=== PATIENT | male | born 1935 | race Caucasian/White ===

== ENCOUNTER 2018-08-10 08:30 | Inpatient (IN) | payer OTHER ==
[~2018-08-10] VITALS: Ht 177.8 cm; Wt 67.1 kg
[2018-08-10 08:30] VITALS: BP_SYST 133
[~2018-08-10 08:30] MED LIST: ALBU2TAB4 PO; ATRMDI INH; GLUC100017 PO; NAPR250T4 PO; OMEP20CA10 PO; PRO20 PO; SEREVENT IH
[2018-08-10 09:24] LABS: BASOPHILS % (AUTO) 0.2 % (0.0-2.0); HEMATOCRIT 38.8 % (36-54); HEMOGLOBIN 13.3 g/dL (14.0-18.0); LYMPHOCYTES # (AUTO) 0.1 K/uL (1.0-5.5); LYMPHOCYTES % (AUTO) 1.1 % (20.5-51.5); MEAN CORPUSCULAR HEMOGLOBIN 32 pg (27-31); MEAN CORPUSCULAR HGB CONC 34 % (32-36); MEAN CORPUSCULAR VOLUME 93 fL (79.0-98.0); MONOCYTES # (AUTO) 0.8 K/uL (0.0-1.0); MONOCYTES % (AUTO) 7.5 % (1.7-9.3); NEUTROPHILS # (AUTO) 10.1 K/uL (1.8-7.7); NEUTROPHILS % (AUTO) 91.2 % (40.0-70.0); PLATELET COUNT (AUTO) 141 K/uL (130-430); RED BLOOD CELL COUNT(AUTO) 4.16 MIL/uL (4.2-6.2); RED CELL DISTRIBUTION WIDTH 13.6 % (9.0-15.0); WHITE BLOOD COUNT (AUTO) 11.1 K/uL (4.8-10.8)
[2018-08-10 09:41] LABS: ANION GAP 12 (5-15); CALCIUM 9.5 mg/dL (8.4-11.0); CHLORIDE 101 mmol/L (98-107); CREATININE 0.69 mg/dL (0.55-1.30); GLUCOSE 154 mg/dL (70-99); POTASSIUM 3.5 mmol/L (3.5-5.1); SODIUM SERUM 135 mmol/L (136-145); UREA NITROGEN, BLOOD 27 mg/dL (8-21)
[2018-08-10 09:57] LABS: ALANINE AMINOTRANSFERASE 124 U/L (12-78); ALBUMIN 3.6 g/dL (3.4-4.8); ASPARTATE AMINOTRANSFERASE 119 U/L (10-37); FREE T4 (FREE THYROXINE) 0.6 ng/dL (0.6-1.6)
[2018-08-10 09:59] LABS: ALCOHOL, BLOOD < 3 mg/dL (<10)
[2018-08-10] MEDS ORDERED: NS 500 ML IV ONE ×2 (10:00→13:00)
[2018-08-10 10:04] LABS: INR 1.1 (0.80-1.20); PROTHROMBIN TIME 11.5 SECS (9.5-12.5)
[2018-08-10 10:10] LABS: BILIRUBIN,URINE NEGATIVE (NEGATIVE); BLOOD, URINE 3+ (NEGATIVE); CLARITY/URINE CLOUDY (CLEAR); COLOR,URINE YELLOW (YELLOW); GLUCOSE,URINE NEGATIVE (NEGATIVE); KETONES,URINE 1+ (NEGATIVE); LEUKOCYTE ESTERASE ,URINE 3+ (NEGATIVE); NITRITE, URINE NEGATIVE (NEGATIVE); PROTEIN URINE 2+ (NEGATIVE); UROBILINOGEN,URINE 0.2 (0.2-1.0)
[2018-08-10 10:16] LABS: BARBITURATE, URINE NEGATIVE (NEG <=200); BENZODIAZEPINE, URINE NEGATIVE (NEG <=150); CANNABINOID, URINE NEGATIVE (NEG <=50); COCAINE, URINE NEGATIVE (NEG <=150); METHAMPHETAMINES SCREEN,URINE NEGATIVE (NEG <=500); OPIATE, URINE NEGATIVE (NEG <=100); PHENCYCLIDINE SCREEN,URINE NEGATIVE (NEG <=25); UR TRICYCLIC ANTIDEPRESSANTS NEGATIVE (NEG <=300); URINE AMPHETAMINE NEGATIVE (NEG <=500); URINE METHADONE NEGATIVE (NEG <=200); URINE OXYCODONE SCREEN NEGATIVE (NEG <=100); URINE PROPOXYPHENE SCREEN NEGATIVE (NEG <=300)
[2018-08-10] MEDS ORDERED: ACETAMINOPHEN 325 MG TABLET PO ONE (10:45)
[2018-08-10 11:10] LABS: BACTERIA,URINE MANY /HPF (None Seen); RBC,URINE 20-50 /HPF (0-3); WBC,URINE >100 /HPF (0-3)
[2018-08-10] MEDS ORDERED: ACETAMINOPHEN 650 MG/20.3 ML UDC PO PRN (12:30)
[2018-08-10] MEDS ORDERED: ONDANSETRON HCL 4 MG/2 ML VIAL IVP PRN (12:30)
[2018-08-10 14:19] VITALS: BP_SYST 110
[2018-08-10] MEDS: cefTRIAXone 1 GM IVPB PREMIX 50 ML IV SCH (15:48)
[2018-08-10] MEDS: NACL 0.9% 1,000 ML IV SCH ×2 (15:49→23:21)
[2018-08-10 16:01] VITALS: BP_SYST 111
[2018-08-10] MEDS ORDERED: THIA50TA10 PO (16:48)
[2018-08-10] MEDS ORDERED: MULT-1089 PO (16:48)
[2018-08-10] MEDS ORDERED: ALBU8.5H8 INH (16:53)
[2018-08-10] MEDS ORDERED: IPRATROPIUM BROM 0.5 MG/2.5 ML VIAL.NEB (ATROVENT) INH PRN (20:00)
[2018-08-10] MEDS ORDERED: ALBUTEROL SULFATE 0.083% 2.5 MG/3 ML VIAL.NEB INH PRN (20:00)
[2018-08-10 20:26] VITALS: BP_SYST 111
[2018-08-10 20:30] VITALS: BP_SYST 100
[2018-08-11 00:19] VITALS: BP_SYST 121
[2018-08-11 08:00] VITALS: BP_SYST 101
[2018-08-11 08:24] LABS: ANION GAP 10 (5-15); CALCIUM 8.5 mg/dL (8.4-11.0); CHLORIDE 107 mmol/L (98-107); CREATININE 0.84 mg/dL (0.55-1.30); GLUCOSE 139 mg/dL (70-99); POTASSIUM 3.4 mmol/L (3.5-5.1); SODIUM SERUM 140 mmol/L (136-145); UREA NITROGEN, BLOOD 33 mg/dL (8-21)
[2018-08-11 08:33] LABS: ALANINE AMINOTRANSFERASE 107 U/L (12-78); ALBUMIN 2.6 g/dL (3.4-4.8); ASPARTATE AMINOTRANSFERASE 93 U/L (10-37)
[2018-08-11] MEDS: cefTRIAXone 1 GM IVPB PREMIX 50 ML IV SCH (09:00)
[2018-08-11] MEDS: NACL 0.9% 1,000 ML IV SCH (09:00)
[2018-08-11] MEDS: FLUoxetine HCL 20 MG CAPSULE (PROzac) PO SCH (10:42)
[2018-08-11] MEDS: NAPROXEN 250 MG TABLET PO SCH (10:43)
[2018-08-11] MEDS: MULTIVITAMINS TAB 1 TABLET PO SCH (10:43)
[2018-08-11] MEDS ORDERED: POTASSIUM CHLORIDE 10 MEQ TAB.PRT.SR PO ONE (11:15)
[2018-08-11] MEDS ORDERED: ALBUTEROL SULFATE 0.083% 2.5 MG/3 ML VIAL.NEB INH PRN (11:30)
[2018-08-11 12:53] VITALS: BP_SYST 114
[2018-08-11 14:15] LABS: BILIRUBIN,URINE NEGATIVE (NEGATIVE); BLOOD, URINE 2+ (NEGATIVE); CLARITY/URINE CLOUDY (CLEAR); COLOR,URINE YELLOW (YELLOW); GLUCOSE,URINE NEGATIVE (NEGATIVE); KETONES,URINE NEGATIVE (NEGATIVE); LEUKOCYTE ESTERASE ,URINE 3+ (NEGATIVE); NITRITE, URINE NEGATIVE (NEGATIVE); PROTEIN URINE 2+ (NEGATIVE)
[2018-08-11 14:27] LABS: BACTERIA,URINE FEW /HPF (None Seen); MUCUS,URINE None Seen /LPF (None Seen); RBC,URINE 0-3 /HPF (0-3); WBC,URINE >100 /HPF (0-3)
[2018-08-11] MEDS: NORMAL SALINE 5 ML DISP.SYRIN IVF SCH ×2 (14:32→22:57)
[2018-08-11 16:32] VITALS: BP_SYST 101
[2018-08-11 20:15] VITALS: BP_SYST 106
[2018-08-12 00:11] VITALS: BP_SYST 123
[2018-08-12] MEDS: NORMAL SALINE 5 ML DISP.SYRIN IVF SCH ×3 (06:10→21:14)
[2018-08-12 07:34] LABS: ANION GAP 9 (5-15); CALCIUM 8.4 mg/dL (8.4-11.0); CHLORIDE 105 mmol/L (98-107); CREATININE 0.56 mg/dL (0.55-1.30); GLUCOSE 110 mg/dL (70-99); POTASSIUM 3.5 mmol/L (3.5-5.1); SODIUM SERUM 139 mmol/L (136-145); UREA NITROGEN, BLOOD 22 mg/dL (8-21)
[2018-08-12] MEDS ORDERED: ALBUTEROL SULFATE 0.083% 2.5 MG/3 ML VIAL.NEB INH PRN (07:36)
[2018-08-12 07:39] LABS: ALANINE AMINOTRANSFERASE 97 U/L (12-78); ALBUMIN 2.6 g/dL (3.4-4.8); ASPARTATE AMINOTRANSFERASE 76 U/L (10-37); TOTAL BILIRUBIN 0.7 mg/dL (0.0-1.0)
[2018-08-12 08:00] VITALS: BP_SYST 100
[2018-08-12] MEDS: cefTRIAXone 1 GM IVPB PREMIX 50 ML IV SCH (09:40)
[2018-08-12] MEDS: MULTIVITAMINS TAB 1 TABLET PO SCH (09:41)
[2018-08-12] MEDS: FLUoxetine HCL 20 MG CAPSULE (PROzac) PO SCH (09:41)
[2018-08-12] MEDS: NAPROXEN 250 MG TABLET PO SCH (09:41)
[2018-08-12 12:51] VITALS: BP_SYST 117
[2018-08-12] MEDS ORDERED: ALBUTEROL SULFATE 0.083% 2.5 MG/3 ML VIAL.NEB INH SCH (13:00)
[2018-08-12 16:50] VITALS: BP_SYST 121
[2018-08-12 19:00] VITALS: BP_SYST 108
[2018-08-12 20:00] VITALS: BP_SYST 108
[2018-08-12] MEDS ORDERED: LORazepam 2 MG/ML VIAL IVP SCH (22:00)
[2018-08-13 00:50] VITALS: BP_SYST 113
[2018-08-13] MEDS: NORMAL SALINE 5 ML DISP.SYRIN IVF SCH ×3 (05:35→20:43)
[2018-08-13 06:34] LABS: BASOPHILS % (AUTO) 0.2 % (0.0-2.0); EOSINOPHILS % (AUTO) 0.1 % (0.0-4.0); HEMATOCRIT 36.3 % (36-54); HEMOGLOBIN 12.5 g/dL (14.0-18.0); LYMPHOCYTES # (AUTO) 0.5 K/uL (1.0-5.5); LYMPHOCYTES % (AUTO) 8.6 % (20.5-51.5); MEAN CORPUSCULAR HEMOGLOBIN 32 pg (27-31); MEAN CORPUSCULAR HGB CONC 34 % (32-36); MEAN CORPUSCULAR VOLUME 93 fL (79.0-98.0); MONOCYTES # (AUTO) 0.9 K/uL (0.0-1.0); MONOCYTES % (AUTO) 15.2 % (1.7-9.3); NEUTROPHILS # (AUTO) 4.6 K/uL (1.8-7.7); NEUTROPHILS % (AUTO) 75.9 % (40.0-70.0); PLATELET COUNT (AUTO) 137 K/uL (130-430); RED BLOOD CELL COUNT(AUTO) 3.91 MIL/uL (4.2-6.2); RED CELL DISTRIBUTION WIDTH 13.3 % (9.0-15.0)
[2018-08-13 07:16] LABS: ANION GAP 9 (5-15); CALCIUM 8.3 mg/dL (8.4-11.0); CHLORIDE 106 mmol/L (98-107); CREATININE 0.56 mg/dL (0.55-1.30); GLUCOSE 90 mg/dL (70-99); SODIUM SERUM 141 mmol/L (136-145); UREA NITROGEN, BLOOD 18 mg/dL (8-21)
[2018-08-13 07:34] LABS: ALANINE AMINOTRANSFERASE 73 U/L (12-78); ALBUMIN 2.4 g/dL (3.4-4.8); ASPARTATE AMINOTRANSFERASE 49 U/L (10-37); TOTAL BILIRUBIN 0.5 mg/dL (0.0-1.0)
[2018-08-13 07:45] VITALS: BP_SYST 117
[2018-08-13] MEDS: cefTRIAXone 1 GM IVPB PREMIX 50 ML IV SCH (10:11)
[2018-08-13] MEDS: FLUoxetine HCL 20 MG CAPSULE (PROzac) PO SCH (10:12)
[2018-08-13] MEDS: NAPROXEN 250 MG TABLET PO SCH (10:12)
[2018-08-13] MEDS: MULTIVITAMINS TAB 1 TABLET PO SCH (10:12)
[2018-08-13] MEDS ORDERED: GENTAMICIN SULFATE 300 MG in NS 100 ML IV ONE (10:15)
[2018-08-13] MEDS ORDERED: POTASSIUM CHLORIDE 20 MEQ TAB.PRT.SR PO ONE (10:15)
[2018-08-13] MEDS ORDERED: THIAMINE HCL 100 MG TABLET PO ONE (10:30)
[2018-08-13] MEDS ORDERED: MINERAL OIL 30 ML UDC PO ONE (10:45)
[2018-08-13] MEDS ORDERED: POLYETHYLENE GLYCOL 3350, 17 GM/ POWD.PACK PO ONE (10:45)
[2018-08-13 16:39] VITALS: BP_SYST 117
[2018-08-13 18:05] VITALS: BP_SYST 127
[2018-08-13 20:00] VITALS: BP_SYST 121
[2018-08-13] MEDS: MINERAL OIL 30 ML UDC PO SCH (20:43)
[2018-08-13 23:23] VITALS: BP_SYST 114
[2018-08-14] MEDS ORDERED: TAMSULOSIN HCL 0.4 MG CAP PO ONE (02:00)
[2018-08-14] MEDS: NORMAL SALINE 5 ML DISP.SYRIN IVF SCH ×2 (05:11→13:33)
[2018-08-14 07:01] LABS: BASOPHILS % (AUTO) 0.3 % (0.0-2.0); EOSINOPHILS % (AUTO) 0.2 % (0.0-4.0); HEMATOCRIT 38.1 % (36-54); HEMOGLOBIN 13.2 g/dL (14.0-18.0); LYMPHOCYTES # (AUTO) 0.6 K/uL (1.0-5.5); LYMPHOCYTES % (AUTO) 10.2 % (20.5-51.5); MEAN CORPUSCULAR HEMOGLOBIN 32 pg (27-31); MEAN CORPUSCULAR HGB CONC 35 % (32-36); MEAN CORPUSCULAR VOLUME 93 fL (79.0-98.0); MONOCYTES # (AUTO) 0.9 K/uL (0.0-1.0); MONOCYTES % (AUTO) 14.6 % (1.7-9.3); NEUTROPHILS # (AUTO) 4.7 K/uL (1.8-7.7); NEUTROPHILS % (AUTO) 74.7 % (40.0-70.0); PLATELET COUNT (AUTO) 159 K/uL (130-430); RED BLOOD CELL COUNT(AUTO) 4.09 MIL/uL (4.2-6.2); RED CELL DISTRIBUTION WIDTH 13.5 % (9.0-15.0); WHITE BLOOD COUNT (AUTO) 6.3 K/uL (4.8-10.8)
[2018-08-14 07:04] LABS: ANION GAP 9 (5-15); CALCIUM 8.7 mg/dL (8.4-11.0); CHLORIDE 105 mmol/L (98-107); GLUCOSE 97 mg/dL (70-99); POTASSIUM 3.6 mmol/L (3.5-5.1); SODIUM SERUM 140 mmol/L (136-145); UREA NITROGEN, BLOOD 18 mg/dL (8-21)
[2018-08-14 07:17] LABS: ALANINE AMINOTRANSFERASE 66 U/L (12-78); ALBUMIN 2.5 g/dL (3.4-4.8); ASPARTATE AMINOTRANSFERASE 35 U/L (10-37); TOTAL BILIRUBIN 0.6 mg/dL (0.0-1.0)
[2018-08-14] MEDS ORDERED: THIAMINE HCL 100 MG TABLET PO SCH (09:00)
[2018-08-14] MEDS ORDERED: POLYETHYLENE GLYCOL 3350, 17 GM/ POWD.PACK PO SCH (09:00)
[2018-08-14] MEDS: cefTRIAXone 1 GM IVPB PREMIX 50 ML IV SCH (09:02)
[2018-08-14] MEDS: MINERAL OIL 30 ML UDC PO SCH (09:03)
[2018-08-14] MEDS: FLUoxetine HCL 20 MG CAPSULE (PROzac) PO SCH (09:04)
[2018-08-14] MEDS: MULTIVITAMINS TAB 1 TABLET PO SCH (09:04)
[2018-08-14] MEDS: NAPROXEN 250 MG TABLET PO SCH (09:04)
[2018-08-14 09:34] VITALS: BP_SYST 106
[2018-08-14] MEDS ORDERED: GENTAMICIN SULFATE 300 MG in NS 100 ML IV ONE (10:15)
[2018-08-14 11:11] LABS: % FREE PSA 6.5 %; FREE PSA 0.28 ng/mL; PROSTATE SPECIFIC AG TOTAL 4.3 ng/mL (0.0-4.0)
[2018-08-14 12:16] VITALS: BP_SYST 113
[2018-08-14 15:36] VITALS: BP_SYST 114
[2018-08-14 17:06] VITALS: BP_SYST 114
== END 2018-08-14 19:20 | DRG 872 ==
LOC: SED 08:30 → STU 12:20 → SMU 08-13 10:21
PROVIDERS: ADMIT Internal Medicine; ATTEND Internal Medicine
DX: A41.51 Sepsis due to Escherichia coli [E. coli] (principal); N13.6 Pyonephrosis; E86.0 Dehydration; G62.1 Alcoholic polyneuropathy; H91.90 Unspecified hearing loss, unspecified ear; F10.20 Alcohol dependence, uncomplicated; Y90.9 Presence of alcohol in blood, level not specified; R33.9 Retention of urine, unspecified; J45.909 Unspecified asthma, uncomplicated; K21.9 Gastro-esophageal reflux disease without esophagitis; R63.0 Anorexia; M19.90 Unspecified osteoarthritis, unspecified site; F32.9 Major depressive disorder, single episode, unspecified; Z90.49 Acquired absence of other specified parts of digestive tract; Z79.899 Other long term (current) drug therapy; Z88.0 Allergy status to penicillin; Z88.2 Allergy status to sulfonamides; Z68.21 Body mass index [BMI] 21.0-21.9, adult
CPT/HCPCS: 36415; 71045; 74018; 76700-TC; 80053; 80307; 81000-TC; 82140-TC; 83605; 83880; 84153; 84439; 84484; 85025; 85610-TC; 87040-TC; 87086; 87186-TC; 93005; 96361; 96365; 97110-GP; 97116-GP; 97530-GP; 99285; A6209; G0378; G0482; J0696; J1580; J1956; J2060; J2405; J7030

== ENCOUNTER 2018-08-15 07:06 | Emergency (ER) | payer OTHER ==
[~2018-08-15] VITALS: Ht 177.8 cm; Wt 90.7 kg
[2018-08-15 07:06] VITALS: BP_SYST 122
[~2018-08-15 07:06] MED LIST changes: -ALBU2TAB4 PO; +ALBU8.5H8 INH; +MULT-1089 PO; -NAPR250T4 PO; -OMEP20CA10 PO; +THIA50TA10 PO
--- NOTE | 2018-08-15 07:06 | NUR ---
BROUGHT IN BY [facility] AND PLACED IN BED #7, TRIAGED. REPORT GIVEN TO GRANT
--- NOTE | 2018-08-15 07:15 | NUR ---
PATIENT CAME IN BECAUSE HE WAS FOUND ON HIS KNEES PULLING ON CATHETER PER EMT. PATIENT DENIES FALL OR HITTING HEAD. PATIENT ALERT TO NAME, , AND PLACE. PATIENT NOT COMPLAINING OF PAIN. PATIENT NOT COMPLAINING OF SOB, NAUSEA, OR VOMITING. PATIENT HAS DURAN HANGING TO GRAVITY.
--- NOTE | 2018-08-15 08:05 | NUR ---
ER Dr. GOMEZ at bedside examining patient.
--- NOTE | 2018-08-15 08:23 | NUR ---
PATIENT GETTING X RAY IN BED.
--- NOTE | 2018-08-15 09:55 | NUR ---
CALLED AND GAVE REPORT TO JOSAFAT AT [facility]. ETA 30 TO 45 MIN.
--- NOTE | 2018-08-15 10:00 | NUR ---
Patient given written and verbal discharge instructions and verbalizes understanding. ER MD discussed with patient the results and treatment provided. Patient in stable condition. ID arm band removed. NO Rx given. Patient educated on pain management and to follow up with PMD. Pain Scale 0/10. Opportunity for questions provided and answered. Medication side effect fact sheet provided.
--- NOTE | 2018-08-15 10:05 | NUR ---
DURAN EMPTIED 450 ML. PUT NEW DURAN BATH TESTER PATIENT'S LEG BECAUSE OTHER WAS BROKEN.
[2018-08-15 10:45] VITALS: BP_SYST 115
--- NOTE | 2018-08-15 10:45 | NUR ---
Patient given written and verbal discharge instructions and verbalizes understanding. ER MD discussed with patient the results and treatment provided. Patient in stable condition. ID arm band removed. IV catheter on left arm that came with patient is still intack. Mustafa intact. No Rx given. Patient educated on pain management and to follow up with PMD. Pain Scale 0/10. Opportunity for questions provided and answered. Medication side effect fact sheet provided. Addendum: 08/15/18 at 1226 by MAURY Patient left to Justo Davies by [facility].
== END 2018-08-15 10:45 | disposition home or self-care (01) ==
LOC: SED 07:06
DX: Z46.6 Encounter for fitting and adjustment of urinary device (principal)
CPT/HCPCS: 74018; 99283

== ENCOUNTER 2018-09-20 15:49 | Emergency (ER) | payer OTHER ==
[~2018-09-20] VITALS: Ht 175.3 cm; Wt 59.4 kg
[2018-09-20 15:50] VITALS: BP_SYST 114
--- NOTE | 2018-09-20 15:50 | NUR ---
PT TRIAGED AND STATES THAT PT HAD DURAN CATHETER REMOVED AT 1500 AND THAT PT IS UNABLE TO URINATE. PT STATES THAT HOME HEALTH NURSE WAS UNABLE TO PLACE DURAN, STATES THAT HOME HEALTH NURSE SAID SHE WOULD BE BACK IN A HOUR OR SO. DECIDED TO TAKE PT HOME AT THIS TIME TO WAIT FOR HOME HEALTH NURSE. EXPLAINED TO THAT SINCE HE IS HERE, THAT THE ER DR COULD SEE HIM ONCE A BED WAS AVAILABLE (HIGH VOLUME OF PTS AT THIS TIME) DECIDED TO LEAVE AFTER BEING TRIAGED. LEFT WITHOUT BEING SEEN BY
== END 2018-09-20 15:50 | disposition left against medical advice (07) ==
LOC: SED 15:49
DX: Z43.3 Encounter for attention to colostomy (principal); Z53.21 Procedure and treatment not carried out due to patient leaving prior to being seen by health care provider